=== PATIENT | female | born 1935 | race Caucasian/White ===

== ENCOUNTER 2018-06-18 14:19 | Emergency (ER) | payer BC, MEDICARE ==
--- NOTE | 2018-06-18 15:09 | ED ---
Headache - HPI Summary HPI Summary: 82 yr old female with the complaint of headache occasionally that is right frontal. She feels off, but can't put her finger on it. She feels anxious and shaky as well. SHe states she has had no trouble with her ADLs and no trouble driving at all. She called her primary doctor and they couldn't see her today. SHe states they told her to go to the ER or to the urgent care. The patient denies change in vision, speech, hearing, swallowing, gait, strength , and sensation. She denies chest pain, SOB. She denies runny nose, sore throat, cough, abdominal pain, urinary symptoms. She has no other specific complaints. - History Of Current Complaint Chief Complaint: UCGeneralIllness Stated Complaint: LOWRY,ACHES Time Seen by Provider: 06/18/18 14:51 - Allergies/Home Medications Allergies/Adverse Reactions: Allergies Allergy/AdvReac Type Severity Reaction Status Date / Time cortisone Allergy Hives Verified 06/18/18 14:41 Penicillins Allergy Unknown Verified 06/18/18 14:41 Reaction Details Home Medications: Home Medications Calcium Carbonate/Vitamin D3 [Calcium 500+D 500-200 mg-Unit] 1 tab PO DAILY 03/08 [History Confirmed 06/18/18] Vitamin THERAPEUTIC TAB* [Theragran TAB*] 1 tab PO DAILY 06/18/18 [History Confirmed 06/18/18] amLODIPine TAB* [Norvasc 5 mg TAB*] 5 mg PO DAILY 06/18/18 [History Confirmed ] PMH/Surg Hx/FS Hx/Imm Hx Cardiovascular History: Reports: Hx Hypertension - Surgical History Surgery Procedure, Year, and Place: Bilateral TKAs; Skin Graft Right Arm Infectious Disease History: Yes Infectious Disease History: Reports: Hx Clostridium Difficile Denies: Traveled Outside the [place] in Last 30 Days - Family History Known Family History: Positive: None - Social History Lives: With Family Alcohol Use: None Substance Use Type: Reports: None Smoking Status (MU): Never Smoked Tobacco Review of Systems Positive: Fatigue. Negative: Fever, Chills Negative: Blurred Vision, Diplopia Negative: Sore Throat, Ear Ache, Nasal Discharge Negative: Palpitations, Chest Pain Negative: Shortness Of Breath Negative: Abdominal Pain Negative: Arthralgia, Myalgia Negative: Rash Positive: Headache. Negative: Weakness, Paresthesia, Numbness, Syncope Positive: Anxious All Other Systems Reviewed And Are Negative: Yes Physical Exam Triage Information Reviewed: Yes Vital Signs On Initial Exam: Initial Vitals Temp Pulse Resp BP Pulse Ox 98.4 F 66 18 184/96 99 06/18/18 14:39 06/18/18 14:39 06/18/18 14:39 06/18/18 14:39 06/18/18 14:39 Vital Signs Reviewed: Yes Appearance: Positive: Well-Appearing, No Pain Distress Skin: Positive: Warm, Skin Color Reflects Adequate Perfusion Head/Face: Positive: Normal Head/Face Inspection Eyes: Positive: EOMI, IFEANYI ENT: Positive: Normal ENT inspection Neck: Positive: Nontender Respiratory/Lung Sounds: Positive: Clear to Auscultation, Breath Sounds Present Cardiovascular: Positive: RRR. Negative: Murmur Abdomen Description: Negative: Distended Musculoskeletal: Positive: Strength/ROM Intact Neurological: Positive: Sensory/Motor Intact, Alert, Oriented to Person Place, Time, CN Intact II-III, Normal Gait, Speech Normal Psychiatric: Positive: Normal - Jovanny Coma Scale Best Eye Response: 4 - Spontaneous Best Motor Response: 6 - Obeys Commands Best Verbal Response: 5 - Oriented Coma Scale Total: 15 Diagnostics - Vital Signs Vital Signs Temp Pulse Resp BP Pulse Ox 06/18/18 14:39 98.4 F 66 18 184/96 99 - Laboratory Lab Statement: Any lab studies that have been ordered have been reviewed, and results considered in the medical decision making process. Headache Course/Dx - Course Course Of Treatment: 82yr old with non specific complaints. BP a little high, but he has HTN and she states she is all worked up today. - Diagnoses Provider Diagnoses: Hypertension, Headache Discharge - Sign-Out/Discharge Documenting (check all that apply): Patient Departure All imaging exams completed and their final reports reviewed: No Studies - Discharge Plan Condition: Good Disposition: HOME-RECOMMEND TO ED Patient Education Materials: Hypertension (ED), Acute Headache (ED) Referrals: Bernadine Azevedo MD [Primary Care Provider] - 1 Day Additional Instructions: You need to go to the ER now. YOu have been offered an ambulance but have declined it, and you have stated you feel fine driving. - Billing Disposition and Condition Condition: GOOD Disposition: Home-Recommend to ED
== END 2018-06-18 15:08 | disposition home health service (06) ==
LOC: UCCORT 14:19
DX: I10 Essential (primary) hypertension (principal); R51 Headache; Z88.0 Allergy status to penicillin
CPT/HCPCS: 99202; G0463